=== PATIENT | female | born 1965 | race Caucasian/White ===

== ENCOUNTER → 2017-06-07 | Outpatient (CLI) | payer BC ==
[2016-08-15 13:46] VITALS: BP 143/97
[~2017-06-07] MED LIST: ALEVE 220MG220 MG PO; FISH OIL1000 MG PO; LISINOPRIL10 MG PO
== END ==
LOC: RAD 11:00
DX: M41.9 Scoliosis, unspecified (principal)
CPT/HCPCS: A9579